=== PATIENT | male | born 1935 | race Caucasian/White ===

== ENCOUNTER 2021-03-02 15:11 | Inpatient (IN) | payer MEDICARE, BC, SELFPAY ==
[2021-03-02] VITALS (83 sets, daily range): BP systolic 134–198; BP diastolic 56–138; PULSE 53–87; RESP 10–28; TEMP 36.1–36.7; O2SAT 92–99
[2021-03-02 15:50] LABS: HCT 42.9 % (40.0-50.0); HGB 14.1 g/dL (13.5-17.5); MCH 30.9 pg (27.0-33.0); MCHC 32.9 % (32.0-36.0); MCV 94.1 fL (80-95); MPV 11.9 fL (8.0-11.0); Platelet Count 192 10^3/uL (130-400); RBC 4.56 10^6/uL (4.36-5.78); RDW-SD 48.2 fL; WBC 10.99 10^3/uL (4.4-10.8)
--- NOTE | 2021-03-02 15:55 | ED.GENADUL_ITS ---
Discharge Plan Disposition Patient Disposition: [facility] INPATIENT Condition: Serious Discharge Details Clinical Impression: Hypertensive emergency, Elevated troponin, Non-ST elevation OR (NSTEMI) Admit Date/Time: 03/02/21 17:47 Admit Provider: Luis Vásquez Attending Provider: Luis Vásquez Primary Care Provider: Unknown,Unknown ED Provider: Edward Eduardo Discharge Data Discharge Date/Time-TO BE ENTERED AT DEPARTURE: 03/02/21 19:15 Medical Decision Making 1600 -- 86yo m with history HTN,CAD s/p stent, DM, here with asymptomatic elevated blood pressure. Sent by cardiac rehab. EKG performed in cardiac rehab just [employer] reviewed as interpreted by cardiology: Conclusion Atrial-sensed ventricular-paced complexes...other complexes also detected No further analysis attempted due to paced rhythm Artifact in lead(s) I,II,aVR,aVL,aVF Patient is asymptomatic at this time. No baseline lab history on this patient. I called to speak with patient's PCP, Dr. Sánchez, and unfortunately he is not in office and not available today. I called [facility] to speak with his cardiology PA. Awaiting call back. I will give patient nighttime carvedilol that he usually takes around 7p. 1700 --labs reviewed and troponin is elevated at 0.73. Chest x-ray reviewed and interpreted by me and no acute cardiopulmonary disease noted. repeat EKG was reviewed and interpreted by me: Patient is ventricularly paced, negative Ismael's criteria. Patient continues to have no chest pain. Patient remains hypertensive. I will initiate treatment with labetolol infusion for hypertensive emergency. 1713 -- [facility] at capacity. Patient receives his cardiac care at [facility] - I called [facility] transfer center and they note that they are currently at capacity but will accept patient in transfer gilles. Dr. Liu to accept. Plan to admit to the ICU pending transfer. HPI General Mode of arrival: ambulatory . Date/Time Provider Initiated Documentation: 03/02/21 15:14 . Limitations to Documentation: no limitations . Information obtained by: patient . HPI Narrative: Patient sent down by cardiac rehab for elevated blood pressure. 86yo m with h/o CAD, DM, HTN, afib, here with cheif complaint of elevated blood pressure. Patient notes BP typically well controlled when he has checked it recently running 120-150 / 60-80. Patient notes that recently his cardiology PA discontinued HCTZ about 3 weeks ago. He denies chest pain, SOB, KRAMER, weakness, numbness, abdominal pain. No symptoms. Feels fine. Related Data Home Medications Medication Instructions Recorded Confirmed apixaban [Eliquis] 5 mg PO BID 03/02/21 03/02/21 atorvastatin 40 mg PO DAILY 03/02/21 03/02/21 carvedilol [Coreg] 3.125 mg PO BID 03/02/21 03/02/21 clonidine HCl 0.2 mg PO BID 03/02/21 03/02/21 clopidogrel [Plavix] 75 mg PO DAILY 03/02/21 03/02/21 finasteride 5 mg PO DAILY 03/02/21 03/02/21 insulin glargine [Lantus U-100 55 unit SUBCUT QA 03/02/21 03/02/21 Insulin] levothyroxine 75 mcg PO DAILY 03/02/21 03/02/21 losartan 100 mg PO DAILY 03/02/21 03/02/21 metformin 1,000 mg PO BID 03/02/21 03/02/21 potassium chloride 10 meq PO BID 03/02/21 03/02/21 tamsulosin 0.8 mg PO DAILY 03/02/21 03/02/21 Allergies Allergy/AdvReac Type Severity Reaction Status Date / Time No Known Allergies Allergy Unverified 03/02/21 15:22 General Stated Complaint: GenMedical SRIKANTH: 2 Review of Systems All systems reviewed & are unremarkable except as noted in HPI and below Constitutional Constitutional: Denies fever(s) Cardiovascular Cardiovascular: Denies chest pain [facility] Medical History (Updated 03/02/21 @ 23:29 by Edward Eduardo MD) Atrial fibrillation CAD (coronary artery disease) (~01/03/21) mild to mod. non-obstructive RCA and diagonal disease Complete heart block (~2017) Diabetes mellitus History of non-ST elevation myocardial infarction (NSTEMI) (~01/03/21) Hyperlipidemia Hypertension Ischemic cardiomyopathy (~01/03/21) LVEF 40-45% Obstructive sleep apnea has not had PSG yet but suspected d/t witnessed apneic spells suspected to be central sleep apnea; prior surgery for LEONELA Surgical History (Updated 03/02/21 @ 20:04 by Luis Vásquez) History of permanent cardiac pacemaker placement (~2018) S/P cardiac cath (~01/03/21) [facility] [place] s/p PCI after NSTEMI Status post total left knee replacement Social History Smoking/Tobacco Use Status: Former Tobacco Use Quit Date: 07/04/62 Smoking risk assessment performed?: Yes Alcohol Intake: never Drug use: Never Do you feel safe at home: Yes Do you feel safe in your relationship?: Yes Exam Const General: cooperative and no acute distress HENMT Head: normocephalic and atraumatic Mouth: moist mucous membranes Eyes Conjunctivae: normal conjunctivae Sclera: normal sclerae Neck Neck: trachea midline and supple Resp Auscultation: clear to auscultation bilaterally, no rales, no rhonchi and no wheezes Cardio Rate: regular rate and not tachycardic Rhythm: regular rhythm Heart Sounds: murmur GI Palpation: soft, not firm, no guarding, no masses, not rigid and nontender Skin General skin exam: no rashes or lesions noted Neuro General: patient alert, patient awake, patient oriented x3 and tone normal Extrem General: no calf tenderness and edema Laterality: bilateral (trace (note chronic)) Psych Appearance: grossly normal Mental Status: mental status grossly normal Course Vital Signs Vital signs: Vital Signs Temperature 36.7 C 03/02/21 15:15 Pulse 60 03/02/21 15:15 Respiratory Rate 14 03/02/21 15:15 Blood Pressure 198/70 H 03/02/21 15:15 Pulse Oximetry 99 03/02/21 15:15 Temperature 36.7 C 03/02/21 15:15 Temperature Source Skin 03/02/21 15:15 Pulse 60 03/02/21 15:15 Respiratory Rate 14 03/02/21 15:15 Respiratory Effort 03/02/21 15:29 Blood Pressure 198/70 H 03/02/21 15:15 Pulse Oximetry 99 03/02/21 15:15 Oxygen Delivery Method Room Air 03/02/21 15:15 Oxygen Flow Rate 0 03/02/21 15:15 Pain Level 0 03/02/21 15:15 Lab/Test Results Lab/Test Results: Laboratory Tests Range/Units 03/02/21 15:34 WBC (4.4-10.8) 10^3/uL 10.99 H RBC (4.36-5.78) 10^6/uL 4.56 Hgb (13.5-17.5) g/dL 14.1 Hct (40.0-50.0) % 42.9 MCV (80-95) fL 94.1 MCH (27.0-33.0) pg 30.9 MCHC (32.0-36.0) % 32.9 RDW (11.8-14.1) % 14.0 Plt Count (130-400) 10^3/uL 192 MPV (8.0-11.0) fL 11.9 H Critical Care Time Critical Care Time Critical Care Time: Yes Total Critical Care Time: 46 Attestation: I spent greater than 46 minutes addressing this patient's immediate life threats. Please see MDM section of note. This time was spent engaged in work directly related to the patient's care, exclusive of separate procedures, and failure to initiate these interventions would have likely resulted in clinically significant or life threatening deterioration in the patient's condition.
[2021-03-02 16:05] LABS: ALT 24 U/L (16-63); AST 13 U/L (15-37); Albumin 3.5 g/dL (3.4-5.0); Alkaline Phosphatase 108 U/L (46-116); Anion Gap 8.4 mmol/L (3-11); BUN 19 mg/dL (7-18); Bilirubin, Total 0.6 mg/dL (0.2-1.0); CO2 28.6 mmol/L (21.0-32.0); CREATININE 0.9 mg/dL (0.70-1.30); Calcium 8.6 mg/dL (8.5-10.1); Chloride 107 mmol/L (98-107); Glucose 281 mg/dL (74-106); Potassium 3.6 mmol/L (3.5-5.1); Sodium 144 mmol/L (136-145); Total Protein 6.8 g/dL (6.4-8.2)
[2021-03-02 16:29] LABS: Troponin I 0.73 ng/mL (<0.06)
--- NOTE | 2021-03-02 16:30 | RT.EKG_ITS ---
APPROVED REPORT Exam: Resting ECG Reason for Exam: elevated blood pressure Patient Location: E HR:60 bpm ECG Measurements Heart Rate 60 AXIS OH 174 P 80 QRSd 186 QRS -70 QT 489 T 107 QTc 503 Conclusion Ventricular-paced complexes...other complexes also detected
--- NOTE | 2021-03-02 16:30 | DI.RAD_ITS ---
Exam(s) XR CHEST 2V PA LATERAL EXAM: XR CHEST 2V PA LATERAL CLINICAL HISTORY: hypertension TECHNIQUE: COMPARISON: No exams were available for comparison FINDINGS: There is a transvenous cardiac pacemaker in position. Cardiac size is at the upper limits of normal. Lungs appear generally clear. No pleural effusion seen. IMPRESSION: No evidence of acute process. RADIATION DOSE DELIVERED: Total DLP
[2021-03-02] MEDS: Carvedilol 3.125 MG TAB PO (17:05)
--- NOTE | 2021-03-02 17:10 | DI.VRAD_ITS ---
PROCEDURE INFORMATION: Exam: XR Chest Exam date and time: 03/02/2021 4:32 PM Age: 86 years old Clinical indication: Other: Hypertension, TECHNIQUE: Imaging protocol: XR of the chest. Views: 2 views. COMPARISON: No relevant prior studies available. FINDINGS: Lungs: Unremarkable. No consolidation. Pleural spaces: Unremarkable. No pleural effusion. No pneumothorax. Heart/Mediastinum: Unremarkable. No cardiomegaly. Two lead pacer noted. Bones/joints: Unremarkable. IMPRESSION: No acute findings. Dictated and Authenticated by: aDrin Fowler MD. Ordering:MARTINEZ Leon MD
[2021-03-02 17:34] LABS: Source Nasal/Nares
[2021-03-02] MEDS: Labetalol 100 MG/20 ML VIAL 20 MG IVP (17:42)
[2021-03-02 18:27] LABS: COVID-19 PCR Negative (Negative)
--- NOTE | 2021-03-02 19:11 | W.PM.HP.N ---
Date of service: 03/02/21 Time of Service: 19:11 Assessment and Plan Assessment and plan (1) NSTEMI (non-ST elevated myocardial infarction): Status: Acute Assessment and plan: I suspect that given the plateau in his troponin levels he has had a type 2 ischemic event d/t his uncontrolled HTN brought on by poor medication compliance. Neverthless, he will be managed w/ heparin drip pending transfer in the event he needs cardiac cath. He will continue his beta blockers, clonidine and plavix. I will add aspirin to his regimen and put him on a PPI for GI protection. (2) Hypertensive urgency: Status: Acute Assessment and plan: patient was started on labetolol drip however are pharmacy stock is low therefore if his BP goes up over 160 off the labetolol then I will put him on a nicardipine drip. We will continue his clonidine and carvedilol. He received carvedilol 3.125 mg in the ER. I have adjusted his dose. (3) Ischemic cardiomyopathy: Status: Inactive Assessment and plan: patient has known ischemic CM w/ LVEF of 40 to 45%. His BNP is over 6000 and although his CXR did not show pulmonary edema; his lung US demonstrates bilateral B line pattern in multiple zones suggestive of acute CHF. I am going to give him a dose of lasix tonight. (4) Obstructive sleep apnea: Status: Suspected Assessment and plan: we will monitor his SPO2 and if he drops his saturations at night while asleep then we will put him on CPAP. (5) Diabetes mellitus: Status: Chronic Assessment and plan: will continue his Lantus but reduce the dose tomorrow in anticipatin of potential cath. If no cath planned then will resume his usual dose. Will also cover w/ Novolog w/ meals (6) Hypertension: Status: Chronic Assessment and plan: as above History of Present Illness History of Present Illness Chief Complaint: hypertension, BP 207/92 in cardiac rehab Narrative: 86 yr old male w/ PMH NSTEMI w/ PCI 01/03/2021 at [facility] in [place], [place] who presented to cardiac rehab at [facility] today to start his rehab. On arrival he was noted to have elevated BP of 200's/100's per auto cuff and was repeated manually w/ BP 207/92. The rehab nurse contacted Dr. Reena Mata [facility] search coordinator at [facility] who advised the staff to contact his PCP or his own search coordinator at [facility] in [facility]. The staff notified the house nursing supervisor extruding department who advised the patient be taken to the ER. Patient was accompanied by his daugher Horacio who presented to cardiac rehab. Patient did not have any CP or dyspnea. Evaluation in the ER included EKG and labs. EKG demonstrated atrial sensed and ventricular paced rhythm at rate of 63 bpm w/ isolated ectopic ventricular beat. Troponin I was elevated at 0.73 w/ normal creatinine of 0.9. BNP was not done. CXR demonstrated cardiomegaly, aortic calcifications, electronic pacemaker in the left infraclavicular area, pacer wires in the appropriate locations including right atrium and right ventricle apex, no pulmonary vascular congestion. Remainder of labs were unremarkable (no anemia, normal electrolytes, normal LFT's). Patient's other comorbidities include ischemic CM, HTN, HLD, DM (on Lantus and Metformin), hypothyroidism and atrial fibrillation (for which he is anticoagulated w/ Apixaban). His BP has been treated w/ carvedilol, clonidine, losartan and recently his HCTZ was discontinued by his cardiology P.A. at [facility]. He was given a bolus of labetolal 20 mg IVP and started on labetolal drip at 2 mg/minute. Dr. Edward Eduardo, ER attending spoke w/ the transfer center at [facility] in [facility] where he had his stents and Dr. Eduardo was told that [facility] is at capacity and could not accept the patient tonight but indicated that they would put him on list for transfer tomorrow and the patient was accepted to the service of Dr. Nuno Wen. Patient's daughter indicated that he has been missing some doses of his medications. He has a two 28 day trays set up w/ morning and evening meds and he has some which he has not taken in the past week. Review of Systems All systems reviewed & are unremarkable except as noted in HPI and below Constitutional Constitutional: Reports as per HPI and Reports snoring Eyes Eyes: Reports system reviewed and no additional complaints, except as documented ENT Ears, Nose, Mouth, and Throat: Reports system reviewed and no additional complaints, except as documented Cardiovascular Cardiovascular: Denies chest pain, Denies leg edema, Denies lightheadedness and Denies dyspnea Respiratory Respiratory: Denies chest congestion, Denies cough, Denies dyspnea and Reports snoring Gastrointestinal Gastrointestinal: Reports system reviewed and no additional complaints, except as documented Genitourinary Genitourinary: Reports system reviewed and no additional complaints, except as documented Musculoskeletal Musculoskeletal: Reports system reviewed and no additional complaints, except as documented Integumentary/Breasts Skin/Breast: Reports system reviewed and no additional complaints, except as documented Neurologic Neurologic: Reports system reviewed and no additional complaints, except as documented and Reports memory loss Psychiatric Psychiatric: Reports memory loss Endocrine Endocrine: Reports system reviewed and no additional complaints, except as documented Hematologic/Lymphatic Hematologic/Lymphatic: Reports system reviewed and no additional complaints, except as documented Allergic/Immunologic Allergic/Immunologic: Reports system reviewed and no additional complaints, except as documented [facility] Medical History (Updated 03/02/21 @ 23:29 by Edward Eduardo MD) Atrial fibrillation CAD (coronary artery disease) (~01/03/21) mild to mod. non-obstructive RCA and diagonal disease Complete heart block (~2017) Diabetes mellitus History of non-ST elevation myocardial infarction (NSTEMI) (~01/03/21) Hyperlipidemia Hypertension Ischemic cardiomyopathy (~01/03/21) LVEF 40-45% Obstructive sleep apnea has not had PSG yet but suspected d/t witnessed apneic spells suspected to be central sleep apnea; prior surgery for LEONELA Surgical History (Updated 03/02/21 @ 20:04 by Luis Vásquez) History of permanent cardiac pacemaker placement (~2017) S/P cardiac cath (~01/03/21) [facility] [place] s/p PCI after NSTEMI Status post total left knee replacement Social History Smoking/Tobacco Use Status: Former Tobacco Use Quit Date: 07/04/62 Smoking risk assessment performed?: Yes Alcohol Intake: never Drug use: Never Do you feel safe at home: Yes Do you feel safe in your relationship?: Yes Meds Allergies and Home Medications Allergies Allergy/AdvReac Type Severity Reaction Status Date / Time No Known Allergies Allergy Unverified 03/02/21 15:22 Home Medications Medication Instructions Recorded Confirmed Type apixaban [Eliquis] 5 mg PO BID 03/02/21 03/02/21 History atorvastatin 40 mg PO DAILY 03/02/21 03/02/21 History carvedilol [Coreg] 3.125 mg PO BID 03/02/21 03/02/21 History clonidine HCl 0.2 mg PO BID 03/02/21 03/02/21 History clopidogrel [Plavix] 75 mg PO DAILY 03/02/21 03/02/21 History finasteride 5 mg PO DAILY 03/02/21 03/02/21 History insulin glargine [Lantus U-100 55 unit SUBCUT QAM 03/02/21 03/02/21 History Insulin] levothyroxine 75 mcg PO DAILY 03/02/21 03/02/21 History losartan 100 mg PO DAILY 03/02/21 03/02/21 History metformin 1,000 mg PO BID 03/02/21 03/02/21 History potassium chloride 10 meq PO BID 03/02/21 03/02/21 History tamsulosin 0.8 mg PO DAILY 03/02/21 03/02/21 History Exam Narrative Exam Narrative: Elderly male sitting up in his bed eating a sandwich. He is alert and answers questions appropriately he is oriented to place and person, time/date, and circumstances HEENT: wears glasses, full EOMI, no icterus, VA not tested Neck: supple, no JVD, normal carotid pulses w/o bruits, no thyromegaly, no adenopathy Lungs: bibasilar rales, no rhonchi or wheezing Heart: regular, no appreciable murmur or rub Chest: pacer under left infraclavicular space; no redness nor tenderness Abdomen: obese, soft, nontender, no bruits, normal bowel sounds; no guarding or tenderness Lower extremities: trace of pedal edema; palpable pedal pulses 2+/4; no cyanosis; normal ROM and strength Upper extremities: no edema, normal radial and brachial pulses; normal ROM and strength Neuro: no focal deficits; sensation intact to light touch; normal strength; normal facial muscle movement; normal EOMI; CN grossly intact Rectal/genitalia: deferred Results Imaging Chest x-ray: image reviewed EKG: image reviewed Labs Result diagrams: 03/02/21 15:34 03/03/21 06:25 Labs: Laboratory Results - last 24 hr 03/02/21 03/02/21 03/02/21 15:34 15:34 17:30 WBC 10.99 H RBC 4.56 Hgb 14.1 Hct 42.9 MCV 94.1 MCH 30.9 MCHC 32.9 RDW 14.0 Plt Count 192 MPV 11.9 H Sodium 144 Potassium 3.6 Chloride 107 Carbon Dioxide 28.6 Anion Gap 8.4 BUN 19 H Creatinine 0.9 Estimated GFR/1.73 m2 >= 60.00 Glucose 281 H Calcium 8.6 Total Bilirubin 0.6 AST 13 L ALT 24 Alkaline Phosphatase 108 Troponin I 0.73 H* Total Protein 6.8 Albumin 3.5 COVID-19 Source Nasal/Nares SARS-CoV-2 (PCR) Negative Last Vital Signs Temp 36.7 C 03/02/21 15:15 Pulse 60 03/02/21 19:01 Resp 12 03/02/21 19:01 BP 160/79 H 03/02/21 19:01 Pulse Ox 96 03/02/21 19:01
[2021-03-02 20:16] LABS: Magnesium 1.5 mg/dL (1.8-2.4)
[2021-03-02 20:22] LABS: INR 1.2 (0.9-1.1); PTT Activated 23.5 sec (21.0-27.5); Prothrombin Time 11.9 sec (9.3-11.0)
[2021-03-02 20:28] LABS: NT-proBNP 6162 pg/mL (<300); Troponin I 0.72 ng/mL (<0.06)
[2021-03-02] MEDS: cloNIDine 0.1 MG TAB 0.2 MG PO (22:06)
[2021-03-02] MEDS: Normal Saline Flush 10 ML SYR IVP (22:06)
[2021-03-02] MEDS: Potassium Chloride 20 MEQ TABCR PO (22:06)
[2021-03-02] MEDS: Furosemide 20 MG/2 ML VIAL IVP (22:30)
[2021-03-02 23:22] LABS: Troponin I 0.74 ng/mL (<0.06)
[2021-03-02] MEDS: Pantoprazole 40 MG TABCR PO (23:53)
[2021-03-02] MEDS: Aspirin 81 MG CHEW 324 MG CH (23:53)
[2021-03-02] MEDS: Insulin Aspart 300 UNITS/3 ML PEN SC (23:57)
[2021-03-03] VITALS (23 sets, daily range): BP systolic 124–181; BP diastolic 63–103; PULSE 56–63; RESP 12–35; TEMP 35.8–36.6; O2SAT 88–98
[2021-03-03] MEDS: Levothyroxine 75 MCG TAB PO (06:24)
[2021-03-03 07:05] LABS: Anion Gap 9.5 mmol/L (3-11); BUN 17 mg/dL (7-18); CO2 26.5 mmol/L (21.0-32.0); CREATININE 0.9 mg/dL (0.70-1.30); Calcium 8.2 mg/dL (8.5-10.1); Chloride 110 mmol/L (98-107); Glucose 155 mg/dL (74-106); Potassium 3.3 mmol/L (3.5-5.1); Sodium 146 mmol/L (136-145)
[2021-03-03 07:13] LABS: PTT Activated 50.2 sec (21.0-27.5)
[2021-03-03] MEDS: Atorvastatin 40 MG TAB PO (08:17)
[2021-03-03] MEDS: Aspirin E.C. 81 MG TABEC PO (08:17)
[2021-03-03] MEDS: Potassium Chloride 10 MEQ TABCR PO (08:17)
[2021-03-03] MEDS: Losartan 50 MG TAB 100 MG PO (08:17)
[2021-03-03] MEDS: Carvedilol 3.125 MG TAB 6.25 MG PO (08:18)
[2021-03-03] MEDS: Finasteride 5 MG TAB PO (08:18)
[2021-03-03] MEDS: Tamsulosin 0.4 MG CAPCR 0.8 MG PO (08:18)
[2021-03-03] MEDS: cloNIDine 0.1 MG TAB 0.2 MG PO (08:18)
[2021-03-03] MEDS: Clopidogrel 75 MG TAB PO (08:23)
[2021-03-03] MEDS: Pantoprazole 40 MG TABCR PO (08:23)
--- NOTE | 2021-03-03 09:01 | DSE_ITS ---
Date of service: 03/03/21 Time of Service: 09:01 DS: Diagnosis Discharge Diagnosis (1) NSTEMI (non-ST elevated myocardial infarction): Status: Acute Asessment and Plan: Probably type II demand ischemic event secondary to his uncontrolled hypertension. Troponin levels have plateaued at 0.70. Patient was treated with aspirin and Plavix and heparin and was transiently treated with IV labetalol drip to control his blood pressure until his home medications were restarted including carvedilol which was uptitrated to 6.25 mg as well as his clonidine 0.2 mg and his losartan 100 mg. Labetalol drip was stopped overnight. Patient is being transferred to a [facility] in [facility] to the care of Dr. Nuno Wen. (2) Hypertensive urgency: Status: Resolved Asessment and Plan: Hypertensive urgency was demonstrated by extreme blood pressure elevations associated with elevated troponin level but no evidence of kidney damage. Blood pressure was brought under control with IV labetalol drip and then converted to his oral medications as noted above. (3) Ischemic cardiomyopathy: Status: Chronic Asessment and Plan: Patient was noted to have elevated proBNP of 6100 and although his chest x-ray showed no acute findings [id number] ultrasound of his lungs demonstrated bilateral basilar to mid lung field B-lines with no pleural effusion. This is consistent with the findings of an acute on chronic heart failure. The acute heart failure is presumed to be due to his hypertensive urgency. Formal echocardiogram has not been performed as there is no career and technology education teacher for the weekend. Patient be transferred to [facility] in [facility] where cardiology services will further evaluate his ischemic heart disease. (4) Obstructive sleep apnea: Status: Suspected Asessment and Plan: Patient reportedly had formerly been surgically treated for obstructive sleep apnea however it suspected that he is having recurrent spells possibly due to central sleep apnea. He has had witnessed apneic spells witnessed by his family. He is awaiting a formal PSG. (5) Diabetes mellitus: Status: Chronic Asessment and Plan: Patient's Metformin was withheld and his Lantus dose was reduced in half as the patient was made n.p.o. for potential cardiac catheterization. (6) Hypertension: Status: Chronic Asessment and Plan: As above. Patient was treated with labetalol drip to bring his extreme blood pressures under control. He was restarted on his carvedilol which was uptitrated to 6.25 mg twice daily his clonidine was continued at 0.2 mg p.o. twice daily as losartan was continued at 100 mg daily. Because of his cardiomyopathy one should consider addition of spironolactone to his regimen. Discharge Plan Disposition Patient Disposition: HOSPITAL, NON-SPECIFIC Condition: Serious Discharge Details Reason For Visit: hypertension, Admit Date/Time: 03/02/21 17:47 Admit Provider: Luis Vásquez Attending Provider: Luis Vásquez Primary Care Provider: Unknown,Unknown Hospital Course Hospital Course: This 86-year-old male with a past medical history of type 2 diabetes mellitus requiring insulin who has a history of coronary artery disease status post NSTEMI with PCI x2 vessels January 03, 2021 performed at [facility] in [facility] was entering into cardiac rehab at [facility] on March 02, 2021. He is currently followed by cardiology at [facility] in [facility] and his youth nutritional monitor had recently discontinued his hydrochlorothiazide. Upon arrival to his first cardiac rehab session he was noted to have elevated blood pressures of 200s over 100s [place] cough and then when it was checked manually it was 207/92. Staff youth nutritional monitor at [facility] Dr. Reena Mata was contacted who advised the cardiac rehab staff to contact the patient's L PCP or his own youth nutritional monitor. After consultation with the nursing felling bucking supervisor patient was sent to the emergency department where he was evaluated. Patient had no symptoms of chest pain or chest pressure or dyspnea but was found to have elevated troponin of 0.73 with normal creatinine. Patient has a permanent pacemaker due to complete heart block and his EKG showed atrial sensing and ventricular pacing. Dr. Edward Eduardo, ER attending, spoke with the transfer center at [facility] in [facility] and was told that the patient would be accepted to the service of Dr. Nuno Wen however because [facility] was at capacity the patient was admitted overni ght to [facility]. Patient's other comorbidities besides his diabetes mellitus and coronary artery disease include ischemic cardiomyopathy with his last left ventricular ejection fraction of 40 to 45% as well as a history of essential hypertension and hyperlipidemia and obstructive sleep apnea. He also has a history of atrial fibrillation is chronically anticoagulated on apixaban. His last dose of apixaban was in the morning of admission. Per my discussion with his daughter it sounds like the patient has been missing some doses of his cardiac medications which may have precipitated his hypertensive urgency. Patient was given a bolus of labetalol 20 mg IV push in the emergency department and started on labetalol drip at 2 mg/min. He was admitted to the intensive care unit with stable systolic blood pressures in the 130-140 range. Patient was given his evening dose of carvedilol while in the emergency department. After admission to the intensive care unit he was given his clonidine. Blood pressures remained labile but overall reasonably controlled compared to his admission blood pressures. Throughout the night his blood pressures ranged between 1 40-1 60 with diastolic readings of 60-80. On the morning of discharge his blood pressure was slightly higher at 179/89 but this was prior to his morning medications. On admission proBNP was obtained and found to be elevated at 6100 and a [id number] ultrasound of his lungs demonstrated bilateral B- lines at both bases as well as in the mid lung villatoro bilaterally. In contrast his chest x-ray was read as showing no acute findings. Nevertheless the patient was given a dose of Lasix 20 mg IV overnight and he diuresed 780 mL overnight. He was made n.p.o. overnight in anticipation of possible cardiac catheterization the next day. He was also started on a heparin drip and given aspirin 324 mg. He was maintained on his Plavix 75 mg. He remained pain-free overnight and with no dyspnea. His troponins were trended and they plateaued at 0.70. His potassium dropped overnight after the Lasix and went down to 3.3. He was given 40 mEq orally at 20 mEq IV dose was also ordered. His condition on discharge is serious but hemodynamically stable. Patient was transferred to [facility] in [facility] to the service of Dr. Nuno Wen. Home Meds and New Rx's Prescriptions: No Action carvedilol [Coreg] 3.125 mg Tablet 3.125 mg PO BID RF: 0 Eliquis 5 mg Tablet 5 mg PO BID RF: 0 losartan 100 mg Tablet 100 mg PO DAILY RF: 0 levothyroxine 75 mcg Tablet 75 mcg PO DAILY RF: 0 metformin 500 mg Tablet 1,000 mg PO BID RF: 0 potassium chloride 10 mEq Tablet Extended Release 10 meq PO BID RF: 0 clopidogrel [Plavix] 75 mg Tablet 75 mg PO DAILY RF: 0 finasteride 5 mg Tablet 5 mg PO DAILY RF: 0 clonidine HCl 0.2 mg Tablet 0.2 mg PO BID RF: 0 tamsulosin 0.4 mg Capsule 0.8 mg PO DAILY RF: 0 atorvastatin 40 mg Tablet 40 mg PO DAILY RF: 0 Lantus U-100 Insulin 100 unit/mL Solution 55 unit SUBCUT QAM RF: 0 Discharge Instructions Instructions: Heart Attack (DC), Coronary Artery Disease (DC), Heart Healthy Diet (DC), Chronic Hypertension (DC) Activity:: bedrest Equipment/Supplies:: No Equipment Needed Diet:: heart healthy diabetic diet DS: Summary Time Spent with Patient providing and/or coordinating discharge services: Less than 30 minutes Status at Discharge Functional status at discharge: independent ambulation Overall status at discharge: patient is not back to baseline Mental Status: mental status grossly normal Speech and Movement: speech and movement normal Mood: congruent mood Affect: normal affect Exam Narrative Exam Narrative: Elderly white male sitting up in bed just finished his morning bath. He is alert and oriented to person place time circumstance. Neck veins are flat Lungs reveal bibasilar rales no rhonchi or wheezing Heart is regular with an occasional extrasystolic beat. There is a soft systolic murmur over the apex grade 2/6 to 3/6 with no thrill or heave. Abdomen soft and nontender Extremities without edema Psych Mental Status: mental status grossly normal Speech and Movement: speech and movement normal Mood: congruent mood Affect: normal affect DS: Data Vitals/I&O Vitals and I&O: Vital Signs Temperature 35.8 C L 03/03/21 07:51 Temperature Source Temporal Artery Scan 03/03/21 07:51 Pulse 60 03/03/21 07:51 Pulse 60 03/03/21 07:27 Respiratory Rate 12 03/03/21 04:10 Respiratory Effort 03/03/21 07:51 Respiratory Depth Normal 03/03/21 07:51 Respiratory Pattern Normal 03/03/21 07:51 Blood Pressure 179/89 H 03/03/21 07:27 Blood Pressure Mean 108 03/03/21 07:27 Blood Pressure Position Supine 03/03/21 07:51 Pulse Oximetry 96 03/03/21 07:51 Oxygen Delivery Method Room Air 03/03/21 07:51 Oxygen Flow Rate 0 03/03/21 07:51 Fraction of Inspired Oxygen (FIO2) 2 03/03/21 01:10 Pain Level 0 03/03/21 07:51 Intake & Output 03/02/21 03/02/21 03/03/21 11:59 23:59 11:59 Intake Total 250 / 250 81.167 / 81.167 Output Total 280 / 280 500 / 500 Balance - -418.833 / -418.833 Weight 81.5 kg Intake: IV 250 / 250 81.167 / 81.167 Output: Urine 280 / 280 500 / 500 Other: Urine Color Yellow Yellow Urine Appearance Clear Clear Urine Odor None Comment voids to urinal Voiding Methods Urinal Urinal Data Completed and Pending Labs on day of discharge: Labs from last 24 hours 03/03/21 03/03/21 03/02/21 06:25 06:25 23:00 WBC RBC Hgb Hct MCV MCH MCHC RDW Plt Count MPV PT INR APTT 50.2 H D Sodium 146 H Potassium 3.3 L Chloride 110 H Carbon Dioxide 26.5 Anion Gap 9.5 BUN 17 Creatinine 0.9 Estimated GFR/1.73 m2 >= 60.00 Glucose 155 H D Calcium 8.2 L Magnesium Total Bilirubin AST ALT Alkaline Phosphatase Troponin I 0.70 H* 0.74 H* NT-Pro-B Natriuret Pep Total Protein Albumin COVID-19 Source SARS-CoV-2 (PCR) 03/02/21 03/02/21 03/02/21 22:22 20:00 20:00 WBC RBC Hgb Hct MCV MCH MCHC RDW Plt Count MPV PT 11.9 H INR 1.2 H APTT 23.5 Sodium Potassium Chloride Carbon Dioxide Anion Gap BUN Creatinine Estimated GFR/1.73 m2 Glucose Calcium Magnesium 1.5 L Total Bilirubin AST ALT Alkaline Phosphatase Troponin I Cancelled NT-Pro-B Natriuret Pep Total Protein Albumin COVID-19 Source SARS-CoV-2 (PCR) 03/02/21 03/02/21 03/02/21 20:00 20:00 17:30 WBC RBC Hgb Hct MCV MCH MCHC RDW Plt Count MPV PT INR APTT Sodium Potassium Chloride Carbon Dioxide Anion Gap BUN Creatinine Estimated GFR/1.73 m2 Glucose Calcium Magnesium Total Bilirubin AST ALT Alkaline Phosphatase Troponin I 0.72 H* NT-Pro-B Natriuret Pep 6162 H Total Protein Albumin COVID-19 Source Nasal/Nares SARS-CoV-2 (PCR) Negative 03/02/21 03/02/21 15:34 15:34 WBC 10.99 H RBC 4.56 Hgb 14.1 Hct 42.9 MCV 94.1 MCH 30.9 MCHC 32.9 RDW 14.0 Plt Count 192 MPV 11.9 H PT INR APTT Sodium 144 Potassium 3.6 Chloride 107 Carbon Dioxide 28.6 Anion Gap 8.4 BUN 19 H Creatinine 0.9 Estimated GFR/1.73 m2 >= 60.00 Glucose 281 H Calcium 8.6 Magnesium Total Bilirubin 0.6 AST 13 L ALT 24 Alkaline Phosphatase 108 Troponin I 0.73 H* NT-Pro-B Natriuret Pep Total Protein 6.8 Albumin 3.5 COVID-19 Source SARS-CoV-2 (PCR) COUNT INCLUDES THE [facility] Medical History (Updated 03/03/21 @ 09:23 by Luis Vásquez) Atrial fibrillation CAD (coronary artery disease) (~01/03/21) mild to mod. non-obstructive RCA and diagonal disease Complete heart block (~2017) Diabetes mellitus History of non-ST elevation myocardial infarction (NSTEMI) (~01/03/21) Hyperlipidemia Hypertension Ischemic cardiomyopathy (~01/03/21) LVEF 40-45% Obstructive sleep apnea has not had PSG yet but suspected d/t witnessed apneic spells suspected to be central sleep apnea; prior surgery for LEONELA Surgical History (Updated 03/02/21 @ 20:04 by Luis Vásquez) History of permanent cardiac pacemaker placement (~2017) S/P cardiac cath (~01/03/21) [facility] [place] s[place]p [place] after NSTEMI Status post total left knee replacement Social History Smoking/Tobacco Use Status: Former Tobacco Use Quit Date: 07/04/62 Smoking risk assessment performed?: Yes Alcohol Intake: never Drug use: Never Do you feel safe at home: Yes Do you feel safe in your relationship?: Yes
[2021-03-03] MEDS: Potassium Chloride Liquid 20 MEQ PKT 40 MEQ PO (09:35)
[2021-03-03] MEDS: Insulin Glargine 300 UNITS/3 ML PEN 28 UNITS SC (09:45)
[2021-03-03] MEDS: amLODIPine 5 MG TAB PO (09:49)
== END 2021-03-03 11:00 | disposition short-term general hospital (02) | DRG 281 ==
LOC: ER 19:23 → ICU 19:25
PROVIDERS: Admitting Provider Internal Medicine; Emergency Provider Student in an Organized Health Care Education/Training Program; Visit Provider Internal Medicine
DX: I21.A1 Myocardial infarction type 2 (principal); I44.2 Atrioventricular block, complete; I16.0 Hypertensive urgency; G47.33 Obstructive sleep apnea (adult) (pediatric); E11.9 Type 2 diabetes mellitus without complications; I25.5 Ischemic cardiomyopathy; Z79.4 Long term (current) use of insulin; I25.2 Old myocardial infarction; E78.5 Hyperlipidemia, unspecified; E03.9 Hypothyroidism, unspecified; I48.91 Unspecified atrial fibrillation; Z79.01 Long term (current) use of anticoagulants; I25.10 Atherosclerotic heart disease of native coronary artery without angina pectoris; Z95.0 Presence of cardiac pacemaker; I11.0 Hypertensive heart disease with heart failure; I50.9 Heart failure, unspecified
CPT/HCPCS: 36415; 80048; 80053; 85027; 87635; 93005; 96365; 96376; 71046; 83735; 83880; 84484; 85610; 85730; 93010; 99223; 99238; 99281; J1815; J1941

== ENCOUNTER 2021-03-21 11:30 | Emergency (ER) | payer MEDICARE, BC, SELFPAY ==
[2021-03-21 11:37] VITALS: BP 159/95; PULSE 69; TEMP 36.7; O2SAT 100
--- NOTE | 2021-03-23 08:41 | W.ED.GENAD ---
Discharge Plan Disposition Patient Disposition: HOME Condition: Stable Discharge Details Clinical Impression: Hypertension Primary Care Provider: Unknown,Unknown ED Provider: Smitha Harris Home Meds and New Rx's Prescriptions: Continued carvedilol [Coreg] 3.125 mg Tablet 3.125 mg PO BID RF: 0 Eliquis 5 mg Tablet 5 mg PO BID RF: 0 losartan 100 mg Tablet 100 mg PO DAILY RF: 0 levothyroxine 75 mcg Tablet 75 mcg PO DAILY RF: 0 metformin 500 mg Tablet 1,000 mg PO BID RF: 0 potassium chloride 10 mEq Tablet Extended Release 10 meq PO BID RF: 0 clopidogrel [Plavix] 75 mg Tablet 75 mg PO DAILY RF: 0 finasteride 5 mg Tablet 5 mg PO DAILY RF: 0 clonidine HCl 0.2 mg Tablet 0.2 mg PO BID RF: 0 tamsulosin 0.4 mg Capsule 0.8 mg PO DAILY RF: 0 atorvastatin 40 mg Tablet 40 mg PO DAILY RF: 0 Lantus U-100 Insulin 100 unit/mL Solution 55 unit SUBCUT QAM RF: 0 Discharge Instructions Instructions: Hypertension (ED) Additional Instructions: Take your medications as prescribed Call your tractor mechanic apprentice tomorrow and discuss with them medication options Take your medications as instructed Please return immediately should you develop signs or symptoms consistent with elevated blood pressure such as headache, vision change, chest pain, shortness of breath, dizziness Discharge Data Discharge Date/Time-TO BE ENTERED AT DEPARTURE: 03/21/21 13:03 Medical Decision Making Patient is alert, oriented, of decisional capacity, his blood pressure is elevated although I see no reason to rapidly lower his blood pressure as he is completely asymptomatic This could actually be more harmful than beneficial I did attempt to call patient's tractor mechanic apprentice, however there are lunch and so he is encouraged to call them when he is discharged home to see if they like to change his blood pressure medications at all He does have nitroglycerin which she was told that he could take if his blood pressure is elevated, he is instructed that he may follow the instructions provided by his tractor mechanic apprentice Patient was evaluated in the presence of his daughter and all questions answered to the best my ability They are comfortable with discharge plan at this time given the threshold to return should patient become symptomatic Medical Records Medical records reviewed: Yes I reviewed the patient's medical records. Lab Data Lab results reviewed: Yes I reviewed the patient's lab results. HPI General Mode of arrival: ambulatory. Date/Time Provider Initiated Documentation: 03/21/21 11:56. Limitations to Documentation: no limitations. Information obtained by: patient. HPI Narrative: This 86-year-old gentleman was sent down from cardiac rehab for reported elevated blood pressure. He has A History of Recent Cardiac Catheterization 2 Weeks Ago, Hypertension, Atrial Fibrillation, Coronary Artery Disease. He Took All of His Blood Pressure Medications Prior to Arrival. He Is Completely Asymptomatic and Denies Chest Pain, Vision Change, Shortness of Breath, Headache, or Any Additional Complaints at This Time. He Actually States He Is Feeling Well. He Denies Any Calf Pain or Swelling. He Denies Any Significant Weight Gain. Related Data Home Medications Medication Instructions Recorded Confirmed Eliquis 5 mg PO BID 03/02/21 03/02/21 Lantus U-100 Insulin 55 unit SUBCUT QAM 03/02/21 03/02/21 atorvastatin 40 mg PO DAILY 03/02/21 03/02/21 carvedilol [Coreg] 3.125 mg PO BID 03/02/21 03/02/21 clonidine HCl 0.2 mg PO BID 03/02/21 03/02/21 clopidogrel [Plavix] 75 mg PO DAILY 03/02/21 03/02/21 finasteride 5 mg PO DAILY 03/02/21 03/02/21 levothyroxine 75 mcg PO DAILY 03/02/21 03/02/21 losartan 100 mg PO DAILY 03/02/21 03/02/21 metformin 1,000 mg PO BID 03/02/21 03/02/21 potassium chloride 10 meq PO BID 03/02/21 03/02/21 tamsulosin 0.8 mg PO DAILY 03/02/21 03/02/21 Allergies Allergy/AdvReac Type Severity Reaction Status Date / Time No Known Allergies Allergy Unverified 03/21/21 11:42 General Stated Complaint: GenMedical SRIKANTH: 4 Review of Systems All systems reviewed & are unremarkable except as noted in HPI and below [facility] Medical History (Updated 03/21/21 @ 12:55 by JESSICA Presley) Atrial fibrillation CAD (coronary artery disease) (~01/03/21) mild to mod. non-obstructive RCA and diagonal disease Complete heart block (~2017) Diabetes mellitus History of non-ST elevation myocardial infarction (NSTEMI) (~01/03/21) Hyperlipidemia Hypertension Ischemic cardiomyopathy (~01/03/21) LVEF 40-45% Obstructive sleep apnea has not had PSG yet but suspected d/t witnessed apneic spells suspected to be central sleep apnea; prior surgery for LEONELA Surgical History (Updated 03/02/21 @ 20:04 by Luis Vásquez) History of permanent cardiac pacemaker placement (~2017) S/P cardiac cath (~01/03/21) [facility]p [place] after NSTEMI Status post total left knee replacement Social History Smoking/Tobacco Use Status: Former Tobacco Use Quit Date: 07/04/62 Smoking risk assessment performed?: Yes Alcohol Intake: never Drug use: Never Substance use type: does not use Do you feel safe at home: Yes Do you feel safe in your relationship?: Yes Exam Const General: cooperative and comfortable HENMT Head: normal to inspection Throat: posterior oropharynx normal Other: Uvula midline Eyes Pupils: PERRL Resp Effort & Inspection: normal respiratory effort Auscultation: clear to auscultation bilaterally Cardio Rate: regular rate Rhythm: regular rhythm GI Other: No abdominal tenderness Skin Other: Area of hematoma where cardiac catheterization was performed in left upper extremity, no palpable mass/pseudoaneurysm Neuro General: patient alert and patient oriented x3 Other: Strength and sensation intact distally Extrem Other: No peripheral edema, distal pulses intact Course Vital Signs Vital signs: Vital Signs Temperature 36.7 C 03/21/21 11:37 Pulse 69 03/21/21 11:37 Blood Pressure 159/95 H 03/21/21 11:37 Pulse Oximetry 100 03/21/21 11:37 Temperature 36.7 C 03/21/21 11:37 Temperature Source Temporal Artery Scan 03/21/21 11:37 Pulse 69 03/21/21 11:37 Respiratory Effort Non-Labored 03/21/21 13:02 Blood Pressure 159/95 H 03/21/21 11:37 Blood Pressure Position Sitting 03/21/21 11:37 Pulse Oximetry 100 03/21/21 11:37 Oxygen Delivery Method Room Air 03/21/21 11:37 Oxygen Flow Rate 0 03/21/21 11:37 Pain Level 0 03/21/21 11:37 Comment 03/21/21 11:37
== END 2021-03-21 13:03 | disposition home or self-care (01) ==
PROVIDERS: Emergency Provider Physician Assistant
DX: I10 Essential (primary) hypertension (principal); Z98.890 Other specified postprocedural states; E11.9 Type 2 diabetes mellitus without complications; Z79.4 Long term (current) use of insulin
CPT/HCPCS: 99281; 99283

== ENCOUNTER 2021-04-02 11:00 | Outpatient (RCR) | payer MEDICARE, BC, SELFPAY | END 2021-04-03 23:59 | disposition home or self-care (01) | LOC: CR 11:00 | PROVIDERS: Visit Provider Family Medicine | DX: Z51.89 Encounter for other specified aftercare (principal); I25.5 Ischemic cardiomyopathy; I25.2 Old myocardial infarction; Z95.5 Presence of coronary angioplasty implant and graft | CPT/HCPCS: S9472 ==

== ENCOUNTER 2021-05-02 11:00 | Outpatient (RCR) | payer MEDICARE, BC, SELFPAY | END 2021-05-03 23:59 | disposition home or self-care (01) | LOC: CR 11:00 | PROVIDERS: Visit Provider Family Medicine | DX: Z51.89 Encounter for other specified aftercare (principal); I25.5 Ischemic cardiomyopathy; I25.2 Old myocardial infarction; Z95.5 Presence of coronary angioplasty implant and graft | CPT/HCPCS: S9472 ==

== ENCOUNTER 2021-06-01 11:00 | Outpatient (RCR) | payer MEDICARE, BC, SELFPAY | END 2021-06-03 23:59 | disposition home or self-care (01) | LOC: CR 11:00 | PROVIDERS: Visit Provider Family Medicine | DX: Z51.89 Encounter for other specified aftercare (principal); I25.2 Old myocardial infarction; I25.5 Ischemic cardiomyopathy; Z95.5 Presence of coronary angioplasty implant and graft | CPT/HCPCS: S9472 ==

== ENCOUNTER 2021-06-20 11:00 | Outpatient (RCR) | payer MEDICARE, BC, SELFPAY | END 2021-07-03 23:59 | disposition home or self-care (01) | LOC: CR 11:00 | PROVIDERS: Visit Provider Family Medicine | DX: Z51.89 Encounter for other specified aftercare (principal); I25.5 Ischemic cardiomyopathy; I25.2 Old myocardial infarction; Z95.5 Presence of coronary angioplasty implant and graft | CPT/HCPCS: S9472 ==

== ENCOUNTER 2021-08-02 14:00 | Outpatient (RCR) | payer SELFPAY ==
[2021-07-04 00:11] VITALS: BP 154/65; PULSE 60
[2021-07-05 13:56] VITALS: BP 164/68; PULSE 60
[2021-07-10 14:31] VITALS: BP 157/60; PULSE 59
[2021-07-12 13:54] VITALS: BP 146/55; PULSE 59
--- NOTE | 2021-07-12 14:45 | NUR.NOTE ---
Daughter Perfecto reports that she believes Soto to have a TIA this morning. Patient woke up with slow speech, watery eyes, and poor motor mechanic strength. Mentation cleared throughout day. Presentation today in Cardiac Rehab looks WNL, patients baseline, and VSS. Patient is conversing as he normally does with staff and other patients, and using equipment appropriately. MD not notified by daughter, as she states we gave up calling them. They say he is already on the medications they would want him on for that. Will continue to monitor patient. Nursing Note:
[2021-07-19 14:28] VITALS: BP 154/69; PULSE 61
[2021-07-24 13:54] VITALS: BP 149/62; PULSE 68
[2021-07-26 13:50] VITALS: BP 153/78; PULSE 62
[2021-07-31 14:00] VITALS: BP 154/64; PULSE 65
[2021-08-02 14:45] VITALS: BP 148/68; PULSE 50
== END 2021-08-03 23:59 | disposition home or self-care (01) ==
LOC: CR 14:00
PROVIDERS: Visit Provider Family Medicine
DX: Z51.89 Encounter for other specified aftercare (principal); R69 Illness, unspecified

== ENCOUNTER 2021-08-06 15:02 | Outpatient (RCR) | payer SELFPAY ==
[2021-08-04 00:15] VITALS: BP 148/68; PULSE 50
== END 2021-09-03 23:59 | disposition home or self-care (01) ==
LOC: CR 15:02
PROVIDERS: Visit Provider Family Medicine
DX: R69 Illness, unspecified (principal)

== ENCOUNTER 2021-10-30 14:00 | Outpatient (RCR) | payer SELFPAY ==
[2021-10-04 14:29] VITALS: BP 145/73; PULSE 58
[2021-10-09 13:52] VITALS: BP 166/72; PULSE 57
[2021-10-11 14:00] VITALS: BP 174/74; PULSE 60
[2021-10-16 13:51] VITALS: BP 143/72; PULSE 61; O2SAT 97
[2021-10-18 14:44] VITALS: BP 159/77; PULSE 60
[2021-10-23 13:51] VITALS: BP 156/70; PULSE 59; O2SAT 98
[2021-10-25 13:51] VITALS: BP 136/58; PULSE 60; O2SAT 98
[2021-10-30 14:04] VITALS: BP 141/65; PULSE 59
[2021-11-01 14:02] VITALS: BP 140/62; PULSE 59
== END 2021-11-01 23:59 | disposition home or self-care (01) ==
LOC: CR 14:00
PROVIDERS: Visit Provider Family Medicine
DX: R69 Illness, unspecified (principal)